=== PATIENT | female | born 1955 | race Caucasian/White ===

== ENCOUNTER → 2016-02-29 | Outpatient (CLI) | payer BC ==
[~2016-02-29] MED LIST: ACET325T96 PO; Calcium PO; GINKO BILOBA PO; IBUP-1050 PO; MULT-506 PO; Potassium PO
--- NOTE | 2016-03-01 09:33 | POLYSOMNOGRAPH REPORT ---
CLINICAL DATA: A 60-year-old female with a height of 65 inches and a weight of [address] Garcia for evaluation of a cough. Spirometry pre- and post-bronchodilator was performed. The patient is a smoker and has approximately a [id number] smoking history as documented in the chart. FINDINGS: Pre-bronchodilator spirometry demonstrates mild obstructive airways disease. FVC was 103% of predicted. FEV1 was 77% of predicted. HRW52-50 was 37% of predicted. There was no significant improvement after inhaled bronchodilator. FVC increased to 104% of predicted or 1% improvement. FEV1 improved to 79% of predicted or 2% improvement. EYG54-67 improved to 39% of predicted or 4% improvement. IMPRESSION: Mild obstructive airways disease with no significant change after inhaled bronchodilator. This is consistent with mild chronic obstructive pulmonary disease. MTDD
== END | disposition home or self-care (01) ==
LOC: C.RC 08:13
PROVIDERS: ATTEND Family Medicine
DX: R05 Cough (principal)

== ENCOUNTER → 2016-05-23 | Outpatient (CLI) | payer BC ==
--- NOTE | 2016-05-23 14:23 | DIAGNOSTIC IMAGING REPORT ---
CHEST 2 VIEWS ROUTINE CLINICAL HISTORY: COPD dyspnea COMPARISON STUDY: 06/25/2008 FINDINGS: Mild emphysematous change. Mild chronic interstitial fibrotic change. No evidence for an acute infiltrate. IMPRESSION: Emphysematous change. No acute process. Electronically signed by: Mikel Newman M.D. 05/23/2016 2:21 PM Dictated Date/Time: 05/23/2016 2:20 PM
--- NOTE | 2016-05-23 14:25 | DIAGNOSTIC IMAGING REPORT ---
HEAD CT NONCONTRAST CT DOSE: 638.56 mGycm HISTORY: Headache R51 HEADACHE TECHNIQUE: Multiaxial CT images of the head were performed without the use of intravenous contrast. Comparison: None. Findings: The paranasal sinuses and mastoid air cells are clear. The calvarium and skull base are intact. The ventricles and sulci are within normal limits. There is no mass, hematoma, midline shift, or acute infarct. Impression: No acute intracranial abnormality. Electronically signed by: Mikel Newman M.D. 05/23/2016 2:22 PM Dictated Date/Time: 05/23/2016 2:21 PM
== END | disposition home or self-care (01) ==
LOC: C.CTS 12:44
PROVIDERS: ATTEND Family Medicine
DX: R51 Headache (principal); J44.1 Chronic obstructive pulmonary disease with (acute) exacerbation; M79.89 Other specified soft tissue disorders

== ENCOUNTER → 2016-09-03 | Outpatient (CLI) | payer BC ==
[2016-09-03 15:45] LABS: BASO % 0.1 %; BASO ABS # 0.01 K/uL (0-0.2); COMPLETE YES; EOS % 0.4 %; HEMATOCRIT 38.6 % (37-47); IG% 0.1 %; LYMPH % 10.9 %; LYMPH ABS # 0.75 K/uL (1.2-3.4); MEAN CELL VOLUME 89.1 fL (80-100); MEAN CORPUSCULAR HEMOGLOBIN 28.9 pg (25-34); MEAN CORPUSCULAR HGB CONC 32.4 g/dl (32-36); MEAN PLATELET VOLUME 11.1 fL (7.4-10.4); MONO % 6.1 %; NEUT % 82.4 %; PLATELET COUNT 107 K/uL (130-400); RED BLOOD COUNT 4.33 M/uL (4.2-5.4); WHITE BLOOD COUNT 6.88 K/uL (4.8-10.8)
[2016-09-03 15:58] LABS: URINE APPEARANCE CLEAR (CLEAR); URINE BILIRUBIN NEG (NEG); URINE COLOR YELLOW; URINE EPITHELIAL CELL AUTO >30 /lpf (0-5); URINE NITRITE NEG (NEG); UROBILINOGEN NEG (NEG)
[2016-09-03 16:01] LABS: MANUAL MICROSCOPIC REQUIRED? NO; REVIEW REQ? YES
[2016-09-03 16:14] LABS: ALT/SGPT 24 U/L (12-78); AST/SGOT 17 U/L (15-37); BLOOD UREA NITROGEN 14 mg/dl (7-18); BUN/CREATININE RATIO 20.5 (10-20); CALCIUM 9.2 mg/dl (8.5-10.1); CARBON DIOXIDE 30 mmol/L (21-32); CHLORIDE 109 mmol/L (98-107); CREATININE 0.69 mg/dl (0.60-1.20); GLUCOSE 96 mg/dl (70-99); POTASSIUM 3.8 mmol/L (3.5-5.1); SODIUM 143 mmol/L (136-145)
[2016-09-03 16:23] LABS: ALKALINE PHOSPHATASE 75 U/L (45-117); RHEUMATOID FACTOR < 10.0 U/mL (0-15)
--- NOTE | 2016-09-03 16:29 | DIAGNOSTIC IMAGING REPORT ---
BILATERAL LOWER EXTREMITY VENOUS DOPPLER CLINICAL HISTORY: Bilateral leg edema. COMPARISON STUDY: Bilateral lower extremity venous Doppler April 30, 2009. TECHNIQUE: Sonography of the deep venous system of the bilateral lower extremities was performed. Compression and augmentation were evaluated. FINDINGS: The common femoral, superficial femoral and popliteal veins were compressible. Augmentation was normal. Flow was shown within the deep calf vessels. IMPRESSION: No evidence of deep venous thrombus within the bilateral lower extremities. Electronically signed by: Vinny Carpio M.D. 09/03/2016 4:27 PM Dictated Date/Time: 09/03/2016 4:26 PM
== END | disposition home or self-care (01) ==
LOC: C.ULTR 14:50
DX: R60.0 Localized edema (principal); Z85.048 Personal history of other malignant neoplasm of rectum, rectosigmoid junction, and anus

== ENCOUNTER → 2016-09-27 | Outpatient (CLI) | payer BC ==
[~2016-09-27] MED LIST changes: +OPTIRAY 320 IV PRN
--- NOTE | 2016-09-27 08:37 | DIAGNOSTIC IMAGING REPORT ---
BRAIN COMBO CLINICAL HISTORY: LOWER EXTREMITY Edema, hx OF COLON CA, AMS mental status change COMPARISON STUDY: No previous studies for comparison. TECHNIQUE: Utilizing a 1.5 Mariah magnet and dedicated coil, multiplanar, multiecho imaging of the brain was performed pre and postcontrast administration. IV administration of 5 mL of Gadavist contrast was uneventful. FINDINGS: Diffusion-weighted images are negative for an acute ischemic insult. Signal characteristics the cerebellar as well as cerebral hemispheres indicate minimal chronic small vessel change. Ventricular system is midline. There is no abnormal postcontrast gadolinium enhancement. Ventricular system is midline. Sella and parasellar regions are unremarkable. IMPRESSION: Normal study for age The above report was generated using voice recognition software. It may contain grammatical, syntax or spelling errors. Electronically signed by: Mikel Newman M.D. 09/27/2016 8:36 AM Dictated Date/Time: 09/27/2016 8:32 AM
--- NOTE | 2016-09-27 08:58 | DIAGNOSTIC IMAGING REPORT ---
CT ABD/PELVIS IV AND ORAL CONT CLINICAL HISTORY: Colon carcinoma. Lower extremity edema. COMPARISON STUDY: 04/30/2009, PET/CT scan 11/28/2010 TECHNIQUE: Following the IV administration of 93 mL of Optiray-320, CT scan of the abdomen and pelvis was performed from the lung bases to the proximal femurs. Images are reviewed in the axial, sagittal, and coronal planes. IV contrast was administered without complication. A dose lowering technique was utilized adhering to the principles of ALARA. CT DOSE: 245.39 mGy.cm FINDINGS: Lower chest: The heart is normal in size and configuration, without pericardial effusion. The lung bases and pleural spaces are clear. Liver: There is a 14 mm hypodensity within the lateral segment left hepatic lobe. This remain similar to a prior 2008 study. This is felt to represent a hemangioma. Additional too small to characterize subcentimeter hepatic lesions also remain stable Gallbladder: Unremarkable. Spleen: The spleen is moderately enlarged measuring 16 cm. No splenic masses are visualized. Pancreas: Unremarkable. Adrenal glands: Unremarkable. Kidneys: There is bilateral nephrolithiasis. No solid renal masses are visualized. There is mild fullness of both collecting systems and ureters. Bowel: There are no transition zone to indicate bowel obstruction. There is a right lower quadrant ostomy consistent with an ileal loop diversion Peritoneum: There is no intraperitoneal free air or abdominal ascites. Vasculature: The abdominal aorta is normal in course and caliber. Adenopathy: None. Pelvic viscera: The patient is status post a cystectomy and ileal loop diversion. Skeletal structures: No destructive osseous lesions are seen. IMPRESSION: 1. No evidence of metastatic disease 2. Stable 14 mm hypodense lesion within the left hepatic lobe, likely representing a hemangioma. Additional subcentimeter hepatic hypodense lesions also remain unchanged from 2009 3. No evidence of pathologic adenopathy 4. Postsurgical changes of a cystectomy and ileal loop diversion. Mild dilatation of the renal collecting system and ureters. 5. Splenomegaly Electronically signed by: Sarbjit Corado M.D. 09/27/2016 8:57 AM Dictated Date/Time: 09/27/2016 8:43 AM
== END | disposition home or self-care (01) ==
LOC: C.CTS 06:22
DX: R60.0 Localized edema (principal); K76.9 Liver disease, unspecified; R16.1 Splenomegaly, not elsewhere classified

== ENCOUNTER → 2016-10-07 | Outpatient (CLI) | payer BC ==
[~2016-10-07] MED LIST changes: -OPTIRAY 320 IV PRN
--- NOTE | 2016-10-07 09:48 | DIAGNOSTIC IMAGING REPORT ---
DUPLEX PORTAL HEPATIC VEINS CLINICAL HISTORY: 61 years-old Female presenting with SPLENOMEGALY, LOWER EXTREMITY EDEMA. TECHNIQUE: Real-time grayscale and limited color Doppler ultrasound imaging of the abdomen limited to the right upper quadrant was performed. COMPARISON: CT from 09/27/2016. FINDINGS: Inferior vena cava: Patent with normal color Doppler flow and venous waveforms. Splenic vein: Patent with normal waveforms. Spleen mildly enlarged measuring nearly 15 cm in maximal sagittal dimension. Main portal vein: Anterior grade flow. Apparent filling defect within the main portal vein near the liver hilum extending into right portal venous branches. This is nonocclusive. This apparent thrombus was not present on most recent CT from 09/27/2016. Hepatic veins: Patent with normal triphasic waveforms. Hepatic artery: Patent. Peak systolic velocity 96 cm/s, which is top normal. IMPRESSION: 1. Mild splenomegaly. 2. Nonocclusive thrombus in the main portal vein near the liver hilum extending into the right portal vein. This apparent thrombus was not present on most recent CT from 09/27/2016. Electronically signed by: Aime Tran M.D. 10/07/2016 9:46 AM Dictated Date/Time: 10/07/2016 9:39 AM
== END | disposition home or self-care (01) ==
LOC: C.ULTR 08:30
DX: I81 Portal vein thrombosis (principal); R16.1 Splenomegaly, not elsewhere classified

== ENCOUNTER → 2016-10-23 | Outpatient (CLI) | payer BC ==
[2016-10-23 13:22] LABS: HEMATOCRIT 40.8 % (37-47); MEAN CELL VOLUME 90.3 fL (80-100); MEAN CORPUSCULAR HEMOGLOBIN 30.1 pg (25-34); MEAN CORPUSCULAR HGB CONC 33.3 g/dl (32-36); RED BLOOD COUNT 4.52 M/uL (4.2-5.4); WHITE BLOOD COUNT 5.23 K/uL (4.8-10.8)
[2016-10-23 13:32] LABS: PROTHROMBIN TIME (PATIENT) 11.2 SECONDS (9.0-12.0)
[2016-10-23 14:01] LABS: BASO % 0.2 %; BASO ABS # 0.01 K/uL (0-0.2); COMPLETE YES; EOS % 1.1 %; HYPERSEGMENTED POLYS 1+; IG% 0.2 %; LYMPH % 13.6 %; LYMPH ABS # 0.71 K/uL (1.2-3.4); MEAN PLATELET VOLUME 11.8 fL (7.4-10.4); MONO % 7.5 %; NEUT % 77.4 %; PLATELET COUNT 94 K/uL (130-400); PLT ESTIMATE DECREASED; TEAR DROP CELLS 1+
[2016-10-23 14:14] LABS: FERRITIN 73.8 ng/ml (8.0-388.0)
[2016-10-30 14:21] LABS: A1APH CLINICAL INDICATION NG; A1APH REFERRING PHYSICIAN NG; HEPATITIS BE ANTIBODY TC 556 Nonreactive
== END | disposition home or self-care (01) ==
LOC: C.LAB 12:30
PROVIDERS: ATTEND Internal Medicine Gastroenterology
DX: I81 Portal vein thrombosis (principal)

== ENCOUNTER → 2016-10-24 | Day surgery (SDC) | payer BC ==
[~2016-10-24] VITALS: Ht 162.6 cm; Wt 52.3 kg
[~2016-10-24] MED LIST changes: +ALBUT/IPRATROP 3MG/0.5MG NEB 3 ML VIAL INH ONE; +LIDOCAINE HCL 2% 2 ML VIAL (20MG/ML) ONE; +PHENYLEPHRINE 100MCG/ML 5ML SYR ONE; +PROPOFOL IV EMULSION 10 MG/ML 20 ML VIAL IV ONE; +SODIUM CHLORIDE 0.9% 500ML 500 ML IV ONE
[2016-10-24 12:16] VITALS: Ht 162.6 cm; Wt 52.3 kg
[2016-10-24 13:03] VITALS: PULSE 94; O2SAT 98
--- NOTE | 2016-10-24 13:29 | Endo History and Physical ---
History & Physical Date of Service: Oct 24, 2016. Chief Complaint: Anemia, Portal vein thrombosis Referring Physician: Prasad Hernandez History of Present Illness anemia; new portal vein thrombosis, assess also for portal HTN; Hx CRC Past Medical History Osteoporosis, Fractures, Cancer, Depression Past Surgical History Hx Cardiac Surgery: No Hx Internal Defibrillator: No Hx Pacemaker: No Hx Post-Op Nausea and Vomiting: No Hx Cancer Surgery: Yes (colon resection) Hx Thoracic Surgery: No Hx Orthopedic: No Hx Urinary Tract Surgery: Yes (bladder ca) Family History None Social History Smoking Status: Current Every Day Smoker Hx Substance Use: No Hx Alcohol Use: No Allergies Coded Allergies: No Known Allergies (Verified , 04/12/14) Current Medications Reported Home Medications Medications Dose Route/Sig Max Daily Dose Days Date Category [Calcium] 1 Tab PO DAILY 06/02/14 Reported [Ginko biloba] 1 Cap PO DAILY 06/02/14 Reported [Potassium] 1 Tab PO DAILY 06/02/14 Reported Multivitamin (Multivitamins) Tab 1 Tab PO DAILY 06/02/14 Reported Tylenol (Acetaminophen) 325 Mg Tab 325 Mg PO 04/12/14 Reported Advil (Ibuprofen) 200 Mg Tab 200 Mg PO Q6 PRN 12/07/13 Reported Vital Signs Weight (Kilograms): 52.27 Height (Feet): 5 Height (Inches): 4 Date Time Temp Pulse Resp B/P (MAP) Pulse Ox O2 Delivery O2 Flow Rate FiO2 10/24/16 12:39 36.5 51 18 99/53 (68) 100 Room Air Physical Exam AAOx3 Lungs CTA nl s1s2 Abd soft NT.ND + BS - CCE Assessment and Plan EGD/Colon with possible bx
--- NOTE | 2016-10-24 14:37 | Discharge Instructions ---
Endoscopy Patient Instructions Date / Procedure(s) Performed Oct 24, 2016. Colonoscopy, EGD Allergy Information Coded Allergies: No Known Allergies (Verified , 04/12/14) Discharge Date / Findings Oct 24, 2016. EGD with eso varices- 3 band placed Colon with polyps removed and diverticulosis Medication Instructions Restart Stopped Medication(s): Reported Home Medications Medications Dose Route/Sig Max Daily Dose Days Date Category [Calcium] 1 Tab PO DAILY 06/02/14 Reported [Ginko biloba] 1 Cap PO DAILY 06/02/14 Reported [Potassium] 1 Tab PO DAILY 06/02/14 Reported Multivitamin (Multivitamins) Tab 1 Tab PO DAILY 06/02/14 Reported Tylenol (Acetaminophen) 325 Mg Tab 325 Mg PO 04/12/14 Reported Advil (Ibuprofen) 200 Mg Tab 200 Mg PO Q6 PRN 12/07/13 Reported Reported Home Medications Medications Dose Route/Sig Max Daily Dose Days Date Category [Calcium] 1 Tab PO DAILY 06/02/14 Reported [Ginko biloba] 1 Cap PO DAILY 06/02/14 Reported [Potassium] 1 Tab PO DAILY 06/02/14 Reported Multivitamin (Multivitamins) Tab 1 Tab PO DAILY 06/02/14 Reported Tylenol (Acetaminophen) 325 Mg Tab 325 Mg PO 04/12/14 Reported Advil (Ibuprofen) 200 Mg Tab 200 Mg PO Q6 PRN 12/07/13 Reported Provider Instructions Activity Restrictions - No exercising or heavy lifting for 24 hours. - Do not drink alcohol the day of the procedure. - Do not drive a car or operate machinery until the day after the procedure. - Do not make any important decisions or sign important papers in 24 hours after the procedure. Following Day: - Return to full activity which may include returning to work/school. Diet Start your diet with liquids and light foods (jello, soup, juice, toast). Then eat your usual diet if not nauseated. Treatment For Common After Affects For mild abdominal pain, bloating, or excessive gas: - Rest - Eat lightly - Lie on right side Follow-Up Information Follow-up with Prasad Hernandez as scheduled Anesthesia Information What You Should Know You have had a procedure that required some medicine to reduce anxiety and discomfort. This treatment is called moderate sedation. After receiving the treatment, you may be sleepy, but you will be able to breathe on your own. The effects of the treatment may last for several hours. Follow these instructions along with Activity/Diet recommendations noted above: * Do NOT do anything where dizziness or clumsiness would be dangerous. * Rest quietly at home today, then you can be up and about tomorrow. * Have a responsible person stay with you the rest of today. * You may have had an I.V. today. If so, you may take the dressing off later today. Recommendations Call your doctor if: * Trouble breathing * Continuous vomiting for more than 24 hours * Temperature above 101 degrees * Severe abdominal pain or bloating * Pain not relieved by pain medicine ordered * There is increased drainage or redness from any incision * A large amount of rectal bleeding greater than 2-3 tablespoons. (If you had a polyp/s removed or have hemorrhoids, a small amount of blood - from the rectum is to be expected.) * You have any unanswered questions or concerns. IN THE EVENT OF A SERIOUS EMERGENCY, GO TO THE NEAREST EMERGENCY ROOM Your discharge instructions were prepared by provider Eliecer Pendleton. Patient Instructions Signature Page Monik Page Patient (or Guardian) Signature/Date: I have read and understand the instructions given to me by my caregivers. Caregiver/RN/Doctor Signature/Date: The above-named patient and/or guardian has received patient instructions on this date. + Original Patient Signature Page (only) stays with chart. Please make copy for patient.
--- NOTE | 2016-10-24 14:46 | GI REPORT ---
Procedure Date: 10/24/2016 1:32 PM Procedure: Colonoscopy Indications: High risk colon cancer surveillance: Personal history of colon cancer Medicines: Propofol per Anesthesia Complications: No immediate complications. Estimated blood loss: Minimal. Estimated Blood Loss: Estimated blood loss was minimal. Procedure: Pre-Anesthesia Assessment: - Prior to the procedure, a History and Physical was performed, and patient medications and allergies were reviewed. The patient's tolerance of previous anesthesia was also reviewed. The risks and benefits of the procedure and the sedation options and risks were discussed with the patient. All questions were answered, and informed consent was obtained. Prior Anticoagulants: The patient has taken no previous anticoagulant or antiplatelet agents. ASA Grade Assessment: III - A patient with severe systemic disease. After reviewing the risks and benefits, the patient was deemed in satisfactory condition to undergo the procedure. After I obtained informed consent, the scope was passed under direct vision. Throughout the procedure, the patient's blood pressure, pulse, and oxygen saturations were monitored continuously. The scope was introduced through the anus and advanced to the terminal ileum, with identification of the appendiceal orifice and IC valve. The colonoscopy was performed without difficulty. The patient tolerated the procedure well. The quality of the bowel preparation was good. Findings: The perianal and digital rectal examinations were normal. Pertinent negatives include normal sphincter tone, no palpable rectal lesions and no anal lesion or abnormality was detected. A 6 mm polyp was found in the cecum. The polyp was sessile. The polyp was removed with a hot snare. Resection and retrieval were complete. Estimated blood loss was minimal. Verification of patient identification for the specimen was done by the physician and paint technician using the patient's name and medical record number. A 5 mm polyp was found at 50 cm proximal to the anus. The polyp was sessile. The polyp was removed with a cold snare. Resection and retrieval were complete. Estimated blood loss was minimal. Verification of patient identification for the specimen was done by the physician and paint technician using the patient's name and medical record number. There was evidence of a prior end-to-side colo-colonic anastomosis at 15 cm proximal to the anus. This was patent and was characterized by healthy appearing mucosa and visible sutures. The anastomosis was traversed. A few small-mouthed diverticula were found in the sigmoid colon. The exam was otherwise without abnormality. The terminal ileum appeared normal. Non-bleeding internal hemorrhoids were found during retroflexion. The hemorrhoids were mild and small. There may also be a component of rectal varices in the distal rectum. No additional abnormalities were found on retroflexion. Impression: - One 6 mm polyp in the cecum, removed with a hot snare. Resected and retrieved. - One 5 mm polyp at 50 cm proximal to the anus, removed with a cold snare. Resected and retrieved. - Patent end-to-side colo-colonic anastomosis, characterized by healthy appearing mucosa and visible sutures. - Diverticulosis in the sigmoid colon. - The examination was otherwise normal. - The examined portion of the ileum was normal. - Non-bleeding internal hemorrhoids. Recommendation: - Discharge patient to home (ambulatory). - Advance diet as tolerated. - Continue present medications. - Await pathology results. - Return to GI clinic as previously scheduled. MD Eliecer Sow MD 10/24/2016 2:46:26 PM This report has been signed electronically. Note Initiated On: 10/24/2016 1:32 PM I attest to the content of the Intraoperative Record and orders documented therein, exceptions below
--- NOTE | 2016-10-24 14:54 | GI REPORT ---
Procedure Date: 10/24/2016 1:32 PM Procedure: Upper GI endoscopy Indications: Iron deficiency anemia secondary to chronic blood loss, Iron deficiency anemia, probable portal vein thrombosis. Possible occult cirrhosis Medicines: Propofol per Anesthesia Complications: No immediate complications. Estimated blood loss: None. Estimated Blood Loss: Estimated blood loss: none. Procedure: Pre-Anesthesia Assessment: - Prior to the procedure, a History and Physical was performed, and patient medications and allergies were reviewed. The patient's tolerance of previous anesthesia was also reviewed. The risks and benefits of the procedure and the sedation options and risks were discussed with the patient. All questions were answered, and informed consent was obtained. Prior Anticoagulants: The patient has taken no previous anticoagulant or antiplatelet agents. ASA Grade Assessment: III - A patient with severe systemic disease. After reviewing the risks and benefits, the patient was deemed in satisfactory condition to undergo the procedure. - Prior to the procedure, a History and Physical was performed, and patient medications and allergies were reviewed. The patient's tolerance of previous anesthesia was also reviewed. The risks and benefits of the procedure and the sedation options and risks were discussed with the patient. All questions were answered, and informed consent was obtained. Prior Anticoagulants: The patient has taken no previous anticoagulant or antiplatelet agents. ASA Grade Assessment: III - A patient with severe systemic disease. After reviewing the risks and benefits, the patient was deemed in satisfactory condition to undergo the procedure. After obtaining informed consent, the endoscope was passed under direct vision. Throughout the procedure, the patient's blood pressure, pulse, and oxygen saturations were monitored continuously. The scope was introduced through the mouth, and advanced to the fourth part of duodenum. The scope was introduced through the mouth, and advanced to the second part of duodenum. The upper GI endoscopy was accomplished without difficulty. The patient tolerated the procedure well. Findings: Three columns of non-bleeding grade II varices were found in the middle third of the esophagus, in the lower third of the esophagus and at the gastroesophageal junction, 40 cm from the incisors. They were 5 mm in largest diameter. No stigmata of recent bleeding were evident and no red ferdinand signs were present. Three bands were successfully placed with incomplete eradication of varices. There was no bleeding during, and at the end, of the procedure. Estimated blood loss: none. Mild portal hypertensive gastropathy was found in the gastric fundus and in the gastric body. Retained gastric contents are not identified on this exam. The exam of the stomach was otherwise normal. The examined duodenum was normal. The cardia and gastric fundus were normal on retroflexion. Impression: - Non-bleeding grade II esophageal varices. Incompletely eradicated. Banded. - Portal hypertensive gastropathy. - Normal examined duodenum. - No specimens collected. Recommendation: - Discharge patient to home (ambulatory). - Advance diet as tolerated. - Patient has a contact number available for emergencies. The signs and symptoms of potential delayed complications were discussed with the patient. Return to normal activities tomorrow. Written discharge instructions were provided to the patient. - Repeat the upper endoscopy in 4 weeks per protocol. - Return to GI office as previously scheduled. - Await completion of blood testing and hematology evaluation. Probable acute portal vein thrombosis and would consider anticaogualtion initailly with Lovenox. MD Eliecer Sow MD 10/24/2016 2:53:44 PM This report has been signed electronically. Note Initiated On: 10/24/2016 1:32 PM I attest to the content of the Intraoperative Record and orders documented therein, exceptions below
[2016-10-24 15:09] VITALS: BP 118/63; PULSE 53; O2SAT 100
--- NOTE | 2016-10-24 15:09 | Anesthesiology Progress Note ---
Anesthesia Post Op Note Date & Time Oct 24, 2016 at 15:09 Vital Signs Pain Intensity: 1 Vital Signs Past 12 Hours Date Time Temp Pulse Resp B/P (MAP) Pulse Ox O2 Delivery O2 Flow Rate FiO2 10/24/16 14:54 68 18 125/63 (83) 99 Room Air 10/24/16 14:39 85 18 98/61 (73) 100 Room Air 10/24/16 13:03 94 14 98 Room Air 10/24/16 12:39 36.5 51 18 99/53 (68) 100 Room Air Notes Mental Status: alert / awake / arousable, participated in evaluation Pt Amnestic to Procedure: Yes Nausea / Vomiting: adequately controlled Pain: adequately controlled Airway Patency, RR, SpO2: stable & adequate BP & HR: stable & adequate Hydration State: stable & adequate Anesthetic Complications: no major complications apparent
== END | disposition home or self-care (01) ==
LOC: C.GI 12:02
PROVIDERS: ATTEND Internal Medicine Gastroenterology
DX: D64.9 Anemia, unspecified (principal); I81 Portal vein thrombosis; Z85.038 Personal history of other malignant neoplasm of large intestine; D12.0 Benign neoplasm of cecum; K62.0 Anal polyp; K57.30 Diverticulosis of large intestine without perforation or abscess without bleeding; K64.8 Other hemorrhoids; I85.00 Esophageal varices without bleeding; K31.89 Other diseases of stomach and duodenum; M81.0 Age-related osteoporosis without current pathological fracture; Z87.81 Personal history of (healed) traumatic fracture; F17.200 Nicotine dependence, unspecified, uncomplicated; Z86.718 Personal history of other venous thrombosis and embolism

== ENCOUNTER → 2016-12-27 | Outpatient (CLI) | payer BC ==
[~2016-12-27] MED LIST changes: -ALBUT/IPRATROP 3MG/0.5MG NEB 3 ML VIAL INH ONE; -LIDOCAINE HCL 2% 2 ML VIAL (20MG/ML) ONE; -PHENYLEPHRINE 100MCG/ML 5ML SYR ONE; -PROPOFOL IV EMULSION 10 MG/ML 20 ML VIAL IV ONE; -SODIUM CHLORIDE 0.9% 500ML 500 ML IV ONE
[2016-12-27 15:07] LABS: BASO % 0.2 %; BASO ABS # 0.01 K/uL (0-0.2); COMPLETE YES; EOS % 1.9 %; HEMATOCRIT 41.1 % (37-47); IG% 0.2 %; LYMPH % 15.3 %; LYMPH ABS # 0.74 K/uL (1.2-3.4); MEAN CELL VOLUME 91.5 fL (80-100); MEAN CORPUSCULAR HEMOGLOBIN 29.4 pg (25-34); MEAN CORPUSCULAR HGB CONC 32.1 g/dl (32-36); MEAN PLATELET VOLUME 11.6 fL (7.4-10.4); MONO % 6.2 %; NEUT % 76.2 %; PLATELET COUNT 112 K/uL (130-400); RED BLOOD COUNT 4.49 M/uL (4.2-5.4); WHITE BLOOD COUNT 4.84 K/uL (4.8-10.8)
[2016-12-27 15:37] LABS: FERRITIN 147.7 ng/ml (8.0-388.0)
== END | disposition home or self-care (01) ==
LOC: C.LAB 13:13
DX: D64.9 Anemia, unspecified (principal)

== ENCOUNTER → 2017-02-25 | Outpatient (CLI) | payer OTHER ==
[2017-02-25 17:15] LABS: BASO % 0.1 %; BASO ABS # 0.01 K/uL (0-0.2); EOS % 0.6 %; EOS ABS # 0.04 K/uL (0-0.5); HEMATOCRIT 44.2 % (37-47); HEMOGLOBIN 15.1 g/dL (12.0-16.0); IG# 0.01 K/uL (0.00-0.02); LYMPH % 12.3 %; LYMPH ABS # 0.85 K/uL (1.2-3.4); MEAN CELL VOLUME 89.5 fL (80-100); MEAN CORPUSCULAR HEMOGLOBIN 30.6 pg (25-34); MEAN CORPUSCULAR HGB CONC 34.2 g/dl (32-36); MEAN PLATELET VOLUME 12.1 fL (7.4-10.4); MONO % 3.9 %; MONO ABS # 0.27 K/uL (0.11-0.59); NEUT ABS # 5.75 K/uL (1.4-6.5); PLATELET COUNT 100 K/uL (130-400); RED CELL DISTRIBUTION WIDTH CV 12.7 % (11.5-14.5); RED CELL DISTRIBUTION WIDTH SD 41.4 fL (36.4-46.3); WHITE BLOOD COUNT 6.93 K/uL (4.8-10.8)
[2017-02-25 17:30] LABS: ALBUMIN 4.3 gm/dl (3.4-5.0); ALT/SGPT 23 U/L (12-78); BLOOD UREA NITROGEN 13 mg/dl (7-18); CALCIUM 9.6 mg/dl (8.5-10.1); CARBON DIOXIDE 27 mmol/L (21-32); GLUCOSE 86 mg/dl (70-99); POTASSIUM 3.4 mmol/L (3.5-5.1); SODIUM 140 mmol/L (136-145)
[2017-02-25 17:33] LABS: ALKALINE PHOSPHATASE 68 U/L (45-117); AST/SGOT 20 U/L (15-37); TOTAL PROTEIN 7.8 gm/dl (6.4-8.2)
== END | disposition home or self-care (01) ==
LOC: C.LAB 15:31
DX: R10.9 Unspecified abdominal pain (principal); R41.82 Altered mental status, unspecified